=== PATIENT | female | born 2000 | race African-American/Black ===

== ENCOUNTER 2022-02-10 03:12 | Emergency (ER) | payer MEDICAID ==
[~2022-02-10] VITALS: Ht 154.9 cm; Wt 91.0 kg
[2022-02-10 03:40] VITALS: BP 113/55
== END 2022-02-10 09:56 | disposition left against medical advice (07) ==
LOC: ER 03:12
DX: Z53.21 Procedure and treatment not carried out due to patient leaving prior to being seen by health care provider (principal); R07.9 Chest pain, unspecified; R42 Dizziness and giddiness
CPT/HCPCS: 93005